=== PATIENT | male | born 1995 | race Caucasian/White ===

== ENCOUNTER 2018-12-26 14:59 | Day surgery (SDC) | payer BC, MEDICAID ==
[2018-12-26] MEDS ORDERED: PROPOFOL 20 ML (18:59)
[2018-12-26] MEDS ORDERED: DEXAMETHASONE 4 MG/ML 5 ML INJ (19:00)
[2018-12-26] MEDS ORDERED: LIDOCAINE 2% (SDV) 5 ML INJ (19:00)
[2018-12-26] MEDS ORDERED: ONDANSETRON 4 MG INJ (19:00)
[2018-12-26] MEDS ORDERED: ROCURONIUM 50 MG INJ (19:00)
[2018-12-26] MEDS ORDERED: BUPIVACAINE 0.5% (SDV) 30 ML INJ (19:01)
[2018-12-26] MEDS ORDERED: CEFAZOLIN 1 GM INJ (19:04)
[2018-12-26] MEDS: KETOROLAC 30 MG INJ IV (19:54)
[2018-12-26] MEDS: FENTAnyl 50 MCG/ML VIAL IV ×3 (19:55→20:24)
[2018-12-26] MEDS: HYDROmorphONE 1 MG/5 ML IV SYRINGE IV ×3 (19:55→20:25)
[2018-12-26] MEDS: OXYCODONE/ACETAMINOPHEN (5/325) TAB PO (19:56)
[2018-12-26] MEDS ORDERED: LABETALOL HCL 20MG INJ IV (20:00)
[2018-12-26] MEDS ORDERED: FENTAnyl 50 MCG/ML VIAL IV ×2 (20:00)
[2018-12-26] MEDS ORDERED: MEPERIDINE 25 MG INJ IV (20:00)
[2018-12-26] MEDS ORDERED: DIPHENHYDRAMINE 50 MG INJ IV (20:00)
[2018-12-26] MEDS ORDERED: HYDROmorphONE 1 MG/5 ML IV SYRINGE IV ×2 (20:00)
[2018-12-26] MEDS ORDERED: METOCLOPRAMIDE 10 MG INJ IV (20:00)
[2018-12-26] MEDS ORDERED: hydrALAzine 20 MG INJ IV (20:00)
[2018-12-26] MEDS ORDERED: ONDANSETRON 4 MG INJ IV (20:00)
[2018-12-26] MEDS ORDERED: OXYCODONE/ACETAMINOPHEN (5/325) TAB PO (20:00)
[2018-12-26] MEDS ORDERED: MIDAZOLAM 1 MG/ML 2 ML INJ IV (20:00)
[2018-12-26] MEDS ORDERED: ALBUTEROL 0.083% (NEB) 2.5 MG/3 ML AMP HHN (20:00)
[2018-12-26] MEDS ORDERED: EPHEDrine SULFATE 50 MG/5 ML SYG IV (20:00)
== END 2018-12-26 20:55 | disposition home or self-care (01) ==
LOC: SDS 14:59
DX: M24.621 Ankylosis, right elbow (principal); M24.021 Loose body in right elbow; M25.721 Osteophyte, right elbow
CPT/HCPCS: 24400; 73080-RT